=== PATIENT | male | born 1990 | race American Indian/Alaskan Native ===

== ENCOUNTER 2020-01-17 21:45 | Emergency (ER) | payer SELFPAY ==
[2020-01-17 22:26] VITALS: BP 134/86
--- NOTE | 2020-01-18 02:08 | Emergency Department Report ---
ED Male HPI - General Chief complaint: Medical Clearance Stated complaint: GROIN PAIN Time Seen by Provider: 01/18/20 01:07 Source: patient Mode of arrival: Ambulatory Limitations: No Limitations - History of Present Illness Initial comments: 29-year-old male presents penile drainage after coming contact with a female likely had an STD reports no testicular pain no abdominal pain no fever, chills, sweats no hematuria but does have dysuria MD Complaint: dysuria -: Gradual Location: penis Radiation: none Severity: mild Quality: burning Consistency: constant Improves with: none Worsens with: urination discharge, dysuria. denies: mass, urinary retention, blood in urine, nausea/vomiting, incontinence - Related Data Previous Rx's Medication Instructions Recorded Last Taken Type methOCARBAMOL [Robaxin TAB] 500 mg PO BID PRN #20 tab 02/20/15 Unknown Rx traMADoL [Ultram] 50 mg PO Q6HR PRN #20 tablet 02/20/15 Unknown Rx Azithromycin [Zithromax TAB] 1,000 mg PO ONCE #2 tablet 01/18/20 Unknown Rx metroNIDAZOLE [Flagyl] 2,000 mg PO ONCE #4 tablet 01/18/20 Unknown Rx Allergies Allergy/AdvReac Type Severity Reaction Status Date / Time Fish Containing Products Allergy Anaphylaxis Verified 02/20/15 01:53 shellfish derived Allergy Anaphylaxis Verified 02/20/15 01:50 nuts Allergy Anaphylaxis Uncoded 02/20/15 01:53 ED Review of Systems ROS: Stated complaint: GROIN PAIN Other details as noted in HPI Comment: All other systems reviewed and negative ED Past Medical Hx - Past Medical History Previous Medical History?: Yes Hx Asthma: Yes - Surgical History Past Surgical History?: No - Social History Smoking Status: Current Every Day Smoker Substance Use Type: Alcohol, Marijuana - Medications Home Medications: Home Medications Medication Instructions Recorded Confirmed Last Taken Type methOCARBAMOL [Robaxin TAB] 500 mg PO BID PRN #20 tab 02/20/15 Unknown Rx traMADoL [Ultram] 50 mg PO Q6HR PRN #20 tablet 02/20/15 Unknown Rx Azithromycin [Zithromax TAB] 1,000 mg PO ONCE #2 tablet 01/18/20 Unknown Rx metroNIDAZOLE [Flagyl] 2,000 mg PO ONCE #4 tablet 01/18/20 Unknown Rx ED Physical Exam - General Limitations: No Limitations General appearance: alert, in no apparent distress - Head Head exam: Present: atraumatic, normocephalic - Eye Eye exam: Present: normal appearance, PERRL, EOMI - ENT ENT exam: Present: mucous membranes moist - Neck Neck exam: Present: normal inspection - Respiratory Respiratory exam: Present: normal lung sounds bilaterally. Absent: respiratory distress - Cardiovascular Cardiovascular Exam: Present: regular rate, normal rhythm. Absent: systolic murmur, diastolic murmur, rubs, gallop - GI/Abdominal GI/Abdominal exam: Present: soft, normal bowel sounds - Rectal Rectal exam: Present: deferred - Extremities Exam Extremities exam: Present: normal inspection - Back Exam Back exam: Present: normal inspection - Neurological Exam Neurological exam: Present: alert, oriented X3 - Psychiatric Psychiatric exam: Present: normal affect, normal mood - Skin Skin exam: Present: warm, dry, intact, normal color. Absent: rash ED Course Vital Signs 01/17/20 22:25 Temperature 98.3 F Pulse Rate 82 Respiratory 18 Rate Blood Pressure 134/86 O2 Sat by Pulse 95 Oximetry Critical care attestation.: If time is entered above; I have spent that time in minutes in the direct care of this critically ill patient, excluding procedure time. ED Disposition Clinical Impression: STD exposure Disposition: DC-01 TO HOME OR SELFCARE Is pt being admited?: No Does the pt Need Aspirin: No Condition: Stable Instructions: Safe Sex, Chlamydia Test, Syphilis Test, Gonorrhea Test Referrals: PRIMARY CARE, [Primary Care Provider] - 3-5 Days [facility] [Outside] - 3-5 Days
[2020-01-18] MEDS ORDERED: LIDOCAINE-MPF (1%) 10 MG/1 ML VIAL 5 ML INFILTRATI ONE (02:11)
== END 2020-01-18 04:00 | disposition home or self-care (01) ==
LOC: ED 21:45
DX: J45.909 Unspecified asthma, uncomplicated (principal); F17.200 Nicotine dependence, unspecified, uncomplicated; F12.90 Cannabis use, unspecified, uncomplicated; Z91.013 Allergy to seafood; Z79.899 Other long term (current) drug therapy; Z20.2 Contact with and (suspected) exposure to infections with a predominantly sexual mode of transmission
CPT/HCPCS: 96372; 99282; J0696

== ENCOUNTER 2020-04-11 23:12 | Emergency (ER) | payer SELFPAY ==
[2020-04-11 23:19] VITALS: BP 170/83
--- NOTE | 2020-04-12 00:24 | Emergency Department Report ---
ED Male HPI - General Chief complaint: Urogenital-Male Stated complaint: STD CHECK Source: patient Mode of arrival: Ambulatory Limitations: No Limitations - History of Present Illness Initial comments: Patient is a 29-year-old -Citizen Of [place] male with no past medical history presents to the ED with complaint of acute onset persistent urinary frequency and urgency and with suprapubic pressure for the last 3 days after having unprotected oral sexual intercourse with a female sex partner. Patient states that the symptoms have been persistent and since the onset. Patient denies dysuria, hematuria, penile discharge, testicular pain, abdominal pain, nausea, vomiting, low back pain, chest pain, shortness of breath, sore throat or dysphagia. MD Complaint: other (Urinary frequency and urgency, suprapubic pressure) -: Sudden, days(s) (3) Location: penis, abdomen Radiation: none Severity: moderate Severity scale (0 -10): 4 Quality: dull Consistency: intermittent Improves with: none Worsens with: urination new medication denies other symptoms. denies: discharge, swelling, mass, rash, urinary retention, blood in urine, dysuria, fever, nausea/vomiting, incontinence, other - Related Data Sexually active: Yes Previous Rx's Medication Instructions Recorded Last Taken Type methOCARBAMOL [Robaxin TAB] 500 mg PO BID PRN #20 tab 02/20/15 Unknown Rx traMADoL [Ultram] 50 mg PO Q6HR PRN #20 tablet 02/20/15 Unknown Rx Azithromycin [Zithromax TAB] 1,000 mg PO ONCE #2 tablet 01/18/20 Unknown Rx metroNIDAZOLE [Flagyl] 2,000 mg PO ONCE #4 tablet 01/18/20 Unknown Rx Doxycycline Hyclate 100 mg PO Q12H #20 tablet. 04/12/20 Unknown Rx Allergies Allergy/AdvReac Type Severity Reaction Status Date / Time Fish Containing Products Allergy Anaphylaxis Verified 02/20/15 01:53 shellfish derived Allergy Anaphylaxis Verified 02/20/15 01:50 nuts Allergy Anaphylaxis Uncoded 02/20/15 01:53 ED Review of Systems ROS: Stated complaint: STD CHECK Other details as noted in HPI Constitutional: denies: chills, fever Eyes: denies: eye pain, eye discharge, vision change ENT: denies: ear pain, throat pain Respiratory: denies: cough, shortness of breath, wheezing Cardiovascular: denies: chest pain, palpitations Endocrine: no symptoms reported Gastrointestinal: denies: abdominal pain, nausea, diarrhea Genitourinary: urgency, frequency, other (Suprapubic pressure). denies: dysuria, hematuria, discharge Musculoskeletal: denies: back pain, joint swelling, arthralgia Skin: denies: rash, lesions Neurological: denies: headache, weakness, paresthesias Psychiatric: denies: anxiety, depression Hematological/Lymphatic: denies: easy bleeding, easy bruising ED Past Medical Hx - Past Medical History Previous Medical History?: Yes Hx Asthma: Yes - Surgical History Past Surgical History?: No - Social History Smoking Status: Current Every Day Smoker Substance Use Type: Alcohol - Medications Home Medications: Home Medications Medication Instructions Recorded Confirmed Last Taken Type methOCARBAMOL [Robaxin TAB] 500 mg PO BID PRN #20 tab 02/20/15 Unknown Rx traMADoL [Ultram] 50 mg PO Q6HR PRN #20 tablet 02/20/15 Unknown Rx Azithromycin [Zithromax TAB] 1,000 mg PO ONCE #2 tablet 01/18/20 Unknown Rx metroNIDAZOLE [Flagyl] 2,000 mg PO ONCE #4 tablet 01/18/20 Unknown Rx Doxycycline Hyclate 100 mg PO Q12H #20 tablet. 04/12/20 Unknown Rx ED Physical Exam - General Limitations: No Limitations General appearance: alert, in no apparent distress - Head Head exam: Present: atraumatic, normocephalic, normal inspection - Eye Eye exam: Present: normal appearance, PERRL, EOMI Pupils: Present: normal accommodation - ENT ENT exam: Present: normal exam, normal orophraynx, mucous membranes moist, TM's normal bilaterally, normal external ear exam - Neck Neck exam: Present: normal inspection, full ROM - Respiratory Respiratory exam: Present: normal lung sounds bilaterally. Absent: respiratory distress, wheezes, chest wall tenderness, accessory muscle use, decreased breath sounds, prolonged expiratory - Cardiovascular Cardiovascular Exam: Present: regular rate, normal rhythm, normal heart sounds. Absent: systolic murmur, diastolic murmur, rubs, gallop - GI/Abdominal GI/Abdominal exam: Present: soft, normal bowel sounds. Absent: distended, tenderness, guarding, rebound, hyperactive bowel sounds, organomegaly, mass - Extremities Exam Extremities exam: Present: normal inspection, full ROM, normal capillary refill - Back Exam Back exam: Present: normal inspection, full ROM. Absent: tenderness, CVA tenderness (R), CVA tenderness (L) - Neurological Exam Neurological exam: Present: alert, oriented X3, CN II-XII intact, normal gait, reflexes normal - Psychiatric Psychiatric exam: Present: normal affect, normal mood - Skin Skin exam: Present: warm, dry, intact, normal color. Absent: rash ED Course Vital Signs 04/11/20 23:18 Temperature 98.5 F Pulse Rate 83 Respiratory 18 Rate Blood Pressure 170/83 O2 Sat by Pulse 96 Oximetry ED Medical Decision Making - Medical Decision Making This is a 29-year-old -Citizen Of [place] male with no past medical history presents to the ED with complaint of acute onset persistent urinary frequency and urgency and with suprapubic pressure for the last 3 days after having unprotected oral sexual intercourse with a female sex partner. Patient states that the symptoms have been persistent and since the onset. In the ED, patient is alert and oriented x3 and is not in distress. Urinalysis is unremarkable. Patient was discharged home on medications and advised to follow-up with his primary care physician in 5 to 7 days for reevaluation or return to the ED immediately if symptoms get worse. Patient was also advised to consider f ollowing up with the [facility] for further STD testing. - Differential Diagnosis UTI, urethritis, gonorrhea, chlamydia, kidney stones, Critical care attestation.: If time is entered above; I have spent that time in minutes in the direct care of this critically ill patient, excluding procedure time. ED Disposition Clinical Impression: Increased urinary frequency, Suprapubic pressure Disposition: DC-01 TO HOME OR SELFCARE Is pt being admited?: No Does the pt Need Aspirin: No Condition: Stable Additional Instructions: All lab test results were reviewed and are all nonactionable. Therefore take medication empirically for 10 days as advised. Follow-up with the [facility] for further testing especially of HIV, syphilis and oth er STDs. Observe safe sexual practices. Return to the ED immediately if symptoms get worse. Prescriptions: Doxycycline Hyclate 100 mg PO Q12H #20 tablet. Referrals: [facility] [Provider Group] - 3-5 Days [facility] [Outside] - 3-5 Days Time of Disposition: 02:06 Print Language: MALAGASY
[2020-04-12 01:53] LABS: Bilirubin,Urine NEG (Negative); Blood,Urine NEG (Negative); Calcium Oxalate Crystals,Urine FEW; Color,Urine Yellow (Yellow); Protein,Urine <15 mg/dL mg/dL (Negative); Urobilinogen,Urine < 2.0 mg/dL (<2.0)
== END 2020-04-12 02:15 | disposition home or self-care (01) ==
LOC: ED 23:12
DX: R35.0 Frequency of micturition (principal); R10.2 Pelvic and perineal pain; J45.909 Unspecified asthma, uncomplicated; F17.200 Nicotine dependence, unspecified, uncomplicated; Z79.899 Other long term (current) drug therapy; Z91.013 Allergy to seafood
CPT/HCPCS: 81001